=== PATIENT | female | born 1970 | race Caucasian/White ===

== ENCOUNTER 2016-09-21 14:41 | Emergency (ER) | payer OTHER ==
[2016-09-21 14:45] VITALS: BMI 28.3
[2016-09-21 14:47] VITALS: RESP 18; TEMP 98.1
[2016-09-21] MEDS ORDERED: Naproxen 550 mg Tab PO STA (14:54)
--- NOTE | 2016-09-21 15:04 | ED PDOC ---
Arrival/HPI - General Chief Complaint: Lower Extremity Problem/Injury Time Seen by Provider: 09/21/16 14:53 Historian: Patient, Spouse - History of Present Illness Narrative History of Present Illness (Text): 09/21/16 15:01 This 46 yo female presents to this ED c/o right knee pain x 8 days. Patient stated while walking steps, she fell on her right knee. Denies other complains. Time/Duration: Other (8 days) Quality: Aching Context: Home Past Medical History - Provider Review Nursing Documentation Reviewed: Yes - Infectious Disease Hx of Infectious Diseases: None - Psychiatric Hx Substance Use: No - Surgical History Other/Comment: kidney stones removed - Anesthesia Hx Anesthesia: Yes Hx Anesthesia Reactions: No Family/Social History - Physician Review Nursing Documentation Reviewed: Yes Family/Social History: No Known Family HX Smoking Status: Never Smoked Hx Alcohol Use: No Hx Substance Use: No Allergies/Home Meds Allergies/Adverse Reactions: Allergies No Known Allergies Allergy (Verified 09/21/16 14:44) Review of Systems - Review of Systems Constitutional: Normal. absent: Fatigue, Weight Change, Fevers Eyes: Normal ENT: Normal Respiratory: Normal Cardiovascular: Normal Gastrointestinal: Normal Genitourinary Female: Normal Musculoskeletal: Other ((+) right knee pain) Skin: Normal Neurological: Normal Endocrine: Normal Hemo/Lymphatic: Normal Psychiatric: Normal Physical Exam Vital Signs Temp Pulse Resp BP Pulse Ox 09/21/16 14:47 98.1 F 84 18 119/80 98 Temperature: Afebrile Blood Pressure: Normal Pulse: Regular Respiratory Rate: Normal Appearance: Positive for: Well-Appearing, Non-Toxic, Comfortable Pain Distress: None Mental Status: Positive for: Alert and Oriented X 3 - Systems Exam Head: Present: Atraumatic, Normocephalic Pupils: Present: PERRL Extroacular Muscles: Present: EOMI Conjunctiva: Present: Normal Mouth: Present: Moist Mucous Membranes Upper Extremity: Present: Normal Inspection, Normal ROM, NORMAL PULSES, Neurovascularly Intact, Capillary Refill < 2s Lower Extremity: Present: Normal Inspection, NORMAL PULSES, Normal ROM, Capillary Refill < 2 s, Other (Mild righ anterior medial knee tenderness. No erythema, ecchymosis, or septic knee joint.). No: Edema, CALF TENDERNESS, Erythema, Temperature Abnormalties Neurological: Present: GCS=15, CN II-XII Intact, Speech Normal, Motor Func Grossly Intact, Normal Sensory Function Skin: Present: Warm, Dry, Normal Color. No: Rashes Psychiatric: Present: Alert, Oriented x 3 Medical Decision Making ED Course and Treatment: 09/21/16 16:41 Re-evaluation. Patient feels better. Discussed results and plan with patient who expresses understanding. Counseling was provided regarding the diagnosis and prognosis. All questions answered and there is agreement with the plan to discharge home with instructions. Patient stable for discharge. Return if symptoms persist or worsen 09/21/16 16:41 Lam Bandage was applied Re-evaluation Time: 16:41 Reassessment Condition: Re-examined, Improved - RAD Interpretation Narrative RAD Interpretations (Text): 09/21/16 16:41 Accession No. : [id number] Patient Name / ID : DALTON OLEARY / [id number] Exam Date : 09/21/2016 15:28:09 ( Approved ) Study Comment : Sex / Age : F / 46Y Creator : Kristi Piña V. Dictator : Kristi Piña V. Shop Mechanic : Test Carrier : Kristi Piña V. Approver2 : Report Date : 09/21/2016 15:58:02 My Comment : PROCEDURE: Right Knee Radiographs. HISTORY: pain s/p fall COMPARISON: None. FINDINGS: BONES: . No fracture. JOINTS: Normal. No osteoarthritis. JOINT EFFUSION: Probable small effusion present OTHER FINDINGS: Anterior superior patellar spurring quadriceps insertional enthesophyte IMPRESSION: No fracture. Probable small effusion Radiology Orders: 09/21/16 14:53 KNEE W PATELLA RIGHT 3 VIEW [RAD] Stat - Medication Orders Current Medication Orders: Discontinued Medications Naproxen (Anaprox Ds) 550 mg PO STAT STA Stop: 09/21/16 14:55 Last Admin: 09/21/16 15:02 Dose: 550 mg Disposition/Present on Arrival - Present on Arrival Any Indicators Present on Arrival: No History of DVT/PE: No History of Uncontrolled Diabetes: No Urinary Catheter: No History of Decub. Ulcer: No History Surgical Site Infection Following: None - Disposition Have Diagnosis and Disposition been Completed?: Yes Diagnosis: Knee pain, acute, Effusion of knee joint right Disposition: HOME/ ROUTINE Disposition Time: 16:42 Patient Plan: Discharge Patient Problems: Current Active Problems Problem Status Onset Effusion of knee joint right Acute Knee pain, acute Acute Condition: GOOD Discharge Instructions (ExitCare): Swollen Knee Joint (ED) Additional Instructions: Call private doctor for follow up visit in 1-2 days. Take medication as instructed with food. Keep knee elevated, rest, lam bandage . Remove lam bandage at bedtime. Call orthopedic clinic if pain worsen or persist. Return to emergency if symptoms worsen. Prescriptions: Famotidine [Pepcid] 40 mg PO DAILY #10 tablet Naproxen 500 mg PO BID PRN #14 tab PRN Reason: Pain, Severe (8-10) Referrals: Sampson Mahoney APN [Primary Care Provider] - Follow up with primary [facility] [Outside] - Follow up with primary [facility] [place] [Outside] - Follow up with primary Forms: [employer] (Romanian), WORK NOTE
--- NOTE | 2016-09-21 15:59 | RAD ---
PROCEDURE: Right Knee Radiographs. HISTORY: pain s/p fall COMPARISON: None. FINDINGS: BONES: . No fracture. JOINTS: Normal. No osteoarthritis. JOINT EFFUSION: Probable small effusion present OTHER FINDINGS: Anterior superior patellar spurring quadriceps insertional enthesophyte IMPRESSION: No fracture. Probable small effusion
[2016-09-21 16:58] VITALS: BP 118/70; PULSE 76; O2SAT 100
== END 2016-09-21 16:58 | disposition home or self-care (01) ==
LOC: ED 14:41
DX: M25.561 Pain in right knee (principal); M25.461 Effusion, right knee